=== PATIENT | female | born 1965 | race Caucasian/White ===

== ENCOUNTER 2018-11-19 11:53 | Emergency (ER) | payer BC ==
[~2018-11-19] VITALS: Ht 160 cm; Wt 79.4 kg
[2018-11-19 12:01] VITALS: BP_SYST 151
--- NOTE | 2018-11-19 12:08 | NUR ---
Patient to ER bed 2 to gown for evaluation. Side rails up. Report given to Joceline NASH.
--- NOTE | 2018-11-19 12:11 | NUR ---
Pt AAOx4 ambulated into ED c/o pain to R jaw with intermittent spasming to site x 2 days. Denies trauma/n/v/d/sob/cough. Skin pink dry and warm, breathing even and unlabored. No other injuries/complaints per pt/noted. Will continue to monitor.
--- NOTE | 2018-11-19 12:15 | NUR ---
ER Dr. Tobar at bedside examining patient.
[2018-11-19] MEDS ORDERED: MORPHINE 2 MG/ML INJ. SYRINGE IM ONE (12:30)
[2018-11-19] MEDS ORDERED: ONDANSETRON 4 MG ODT TAB PO ONE (12:30)
--- NOTE | 2018-11-19 12:59 | NUR ---
Report received from CHARITY Car for continuation of care.
[2018-11-19] MEDS ORDERED: DIAZEPAM 10 MG/2 ML DISP.SYRIN IM ONE (13:30)
[2018-11-19] MEDS ORDERED: LORazepam 2 MG/ML VIAL IM ONE (13:45)
--- NOTE | 2018-11-19 15:14 | NUR ---
Patient given written and verbal discharge instructions and verbalizes understanding. ER MD discussed with patient the results and treatment provided. Patient in stable condition. ID arm band removed. Rx of Augmentin, flexeril, motrin given. Patient educated on pain management and to follow up with PMD. Pain Scale 0/10. Opportunity for questions provided and answered. Medication side effect fact sheet provided.
[2018-11-19 15:15] VITALS: BP_SYST 133
== END 2018-11-19 15:15 | disposition home or self-care (01) ==
LOC: SED 11:53
DX: J02.9 Acute pharyngitis, unspecified (principal); Z90.89 Acquired absence of other organs
CPT/HCPCS: 70360; 70490; 81025; 96372; 99284; J2060; J2270; Q0162